=== PATIENT | female | born 1985 | race Caucasian/White ===

== ENCOUNTER 2017-08-31 15:12 | Outpatient (CLI) | payer OTHER | END 2017-08-31 22:30 | disposition home or self-care (01) | LOC: OBS/DEL 15:12 | DX: O60.03 Preterm labor without delivery, third trimester (principal); Z34.83 Encounter for supervision of other normal pregnancy, third trimester ==

== ENCOUNTER 2017-11-09 21:57 | Inpatient (IN) | payer OTHER ==
[~2017-11-09] VITALS: Ht 154.9 cm; Wt 61.7 kg
== END 2017-11-11 14:23 | disposition home or self-care (01) | DRG 775 ==
LOC: OB/GYN 21:57 → LDR 21:57 → OB/GYN 11-10 00:32
PROC: 10E0XZZ Delivery of Products of Conception, External Approach (ICD-10-PCS; principal; 2017-11-09)
PROC: 0W8NXZZ Division of Female Perineum, External Approach (ICD-10-PCS; 2017-11-09)
PROC: 10907ZC Drainage of Amniotic Fluid, Therapeutic from Products of Conception, Via Natural or Artificial Opening (ICD-10-PCS; 2017-11-09)
PROC: 4A1HXCZ Monitoring of Products of Conception, Cardiac Rate, External Approach (ICD-10-PCS; 2017-11-09)
DX: O80 Encounter for full-term uncomplicated delivery (principal); Z3A.39 39 weeks gestation of pregnancy; Z37.0 Single live birth